=== PATIENT | female | born 1960 | race Caucasian/White ===

== ENCOUNTER 2017-07-26 15:36 | Emergency (ER) | payer OTHER ==
[~2017-07-26] VITALS: Ht 177.8 cm; Wt 60.0 kg
[2017-07-26] MEDS ORDERED: GABAPENTIN100 MG PO (16:08)
[2017-07-26] MEDS ORDERED: EFFEXOR XR75 MG PO (16:08)
[2017-07-26] MEDS ORDERED: SUMATRIPTAN25 MG PO (16:10)
[2017-07-26 18:07] VITALS: BP 124/77
== END 2017-07-26 18:10 | disposition home or self-care (01) | DRG 605 ==
LOC: ED 15:36
DX: S00.93XA Contusion of unspecified part of head, initial encounter (principal); S16.1XXA Strain of muscle, fascia and tendon at neck level, initial encounter; W22.8XXA Striking against or struck by other objects, initial encounter; Y92.818 Other transport vehicle as the place of occurrence of the external cause